=== PATIENT | female | born 1955 | race Caucasian/White ===

== ENCOUNTER 2017-05-04 17:01 | Inpatient (IN) ==
[2017-05-04] MEDS ORDERED: SALINE FLUSH 10ml SYRINGE IVF PRN (17:38)
--- NOTE | 2017-05-04 18:07 | Emergency Department Report ---
Neuro HPI - General Chief Complaint: Weakness Stated Complaint: poss blod clot,poss stroke ([facility]) Time Seen by Provider: 05/04/17 17:37 Source: patient Mode of arrival: ambulatory Limitations: no limitations - History of Present Illness HPI Narrative: 61yo woman presents to the ER for left sided facial droop. Pts left forehead was tingling and TTP last night. This AM, pt awoke with some pain behind her left ear and along her left jaw. As she at breakfast, she felt that her sense of taste was off and she started to have some drooling on her left side. Pt initially thought that her sx were due to Nunez's palsy, but sx are not c/w that dx now. Onset (ago): hour(s) (10) Time: 0800 Time Estimated: No Location: left face History of same: No Severity: mild Quality: weak Relieving factors: none Exacerbating factors: none Context: gradual onset On Anticoagulants: Yes (ASA) Associated symptoms: denies other symptoms Treatments Prior to Arrival: none - Related Data Home Medications: Home Medications Medication Instructions Recorded Confirmed Ascorbic Acid [Vitamin C] 1,000 mg PO DAILY #0 02/14/14 05/04/17 Cholecalciferol (Vitamin D3) 3,000 tab PO DAILY #0 05/21/14 05/04/17 [Vitamin D3] Glucosamine/Chondro Lobo A/C/Mn 1 tab PO DAILY #0 05/21/14 05/04/17 [Glucosamine-Chondroitin Cap] Magnesium Amino Acid Chelate 100 mg PO DAILY #0 05/21/14 05/04/17 [Magnesium] Pindolol 2.5 mg PO BID #0 tab 07/02/15 05/04/17 Acetaminophen [Acetaminophen Extra 1,000 mg PO Q6H PRN 05/04/17 05/04/17 Strength] Lutein 20 mg PO DAILY 05/04/17 05/04/17 Wyola-3/Dha/Epa/Fish Oil [Fish Oil 2,000 mg PO DAILY 05/04/17 05/04/17 1,000 mg Softgel] Previous Rx's Medication Instructions Recorded Dabigatran [Pradaxa] 1 cap PO BID #60 cap 05/05/17 Mineral Oil/Petrolatum,White 3.5 gm OP HS #0.25 inch 05/05/17 [Refresh Lacri-Lube Ointment] PredniSONE [Deltasone] 60 mg PO WB #18 tab 05/05/17 Valacyclovir [Valtrex] 1,000 mg PO Q8HR #20 tab 05/05/17 Allergies/Adverse Reactions: Allergies Allergy/AdvReac Type Severity Reaction Status Date / Time No Known Allergies Allergy Verified 05/04/17 17:22 Review of Systems All systems: reviewed and negative except as stated Neurological: Reports: as per HPI, weakness, numbness, paresthesias. Denies: headache, confusion, abnormal gait, vertigo [facility] Medical History CVA (cerebral vascular accident) (Ruled-out Medical) L-Facial involvement Paroxysmal atrial fibrillation (Resolved Medical) History of Left-sided Nunez's palsy (Acute Medical) Medical History Updates: CAD. Osteoarthritis. HL. HTN. Osteoporosis Physical Exam - Limitations Limitations: no limitations - General General appearance: alert, in no apparent distress - Normal Exams: Head:: Normocephalic without trauma Eyes:: Pupils are PERRLA w/ EOMI, No scleral icterus, irritation, or foreign bodies noted ENMT:: No facial trauma, nasal exudates, pharyngeal erythema, or exudates are noted Neck:: Full range of motion, without adenopathy Lymphatic:: No lymphadenopathy Musculoskeletal:: No tenderness, or deformity noted Integumentary:: No rashes, hives, or bruising noted Neurological:: Patient is alert, and oriented Psychiatric:: Patient exhibits, appropriate attention - Neurological Exam Neurological exam: Present: alert, oriented X3, normal gait. Absent: CN II-XII intact (Weakness with puffing-cheeks and slight left-love tongue deviation), motor sensory deficit - Expanded Neurological Exam Patient oriented to: Present: person, place, time Speech: Present: fluid speech Cranial nerves: Normal: EOM function (II, III, IV, ), facial sensation (V), spinal accessory function (XI), Abnormal Left: facial palsy (VII), tongue deviation (XII) Cerebellar function: Normal: finger to nose, heel to segura Cerebellar function: normal gait Motor strength - LUE: 5/5 Motor strength - RUE: 5/5 Motor strength - LLE: 5/5 Motor strength - RLE: 5/5 Upper motor neuron exam: Absent bilaterally: dennis neglect, pronator drift, sensory extinction DTR: 2+: biceps (L), biceps (R), patellar (L), patellar (R) Coma scale eye opening: spontaneous Coma scale motor response: obeys commands Coma scale verbal response: oriented Coma scale total: 15 Course - Consultations Consultation #1: Dr. Moncada: Will admit for CVA work up. Time: 18:20 Vital Signs Temperature 98.1 F 05/04/17 17:07 Pulse Rate 72 05/04/17 17:07 Respiratory Rate 20 05/04/17 17:07 Blood Pressure 142/85 H 05/04/17 17:07 Pulse Oximetry 100 05/04/17 17:07 Temperature 97.5 F 05/05/17 15:00 Pulse Rate 73 05/05/17 15:00 Respiratory Rate 12 05/05/17 15:00 Blood Pressure 120/66 05/05/17 15:00 Pulse Oximetry 100 05/05/17 15:00 Neuro Symptoms/Deficit - MDM Narrative Medical decision making narrative: Pt with hx c/w Nunez's palsey or Troncoso-Payton syndrome, but without PE findings to corroborate. Pts PE today is c/w a 'mild' CVA. 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 After initial evaluation, pt discussed with hospitalist for admission/CVA workup. Pt voiced understanding of dx, prognosis, tx, and f/u need. - Differential Diagnosis Likely: convulsions, subarachnoid hemorrhage, peripheral neuropathy, cerebrovascular accident, transient cerebral ischemia - Medical Records Attestation: I reviewed the patient's medical records. - Lab Data Attestation: I reviewed the patient's lab results. Result diagrams: 05/04/17 17:21 05/05/17 05:18 Lab Results 05/04/17 05/04/17 05/04/17 Range/Units 17:21 17:21 17:21 WBC 4.9 (4.5-11.0) T/MM3 RBC 4.27 (4.00-5.20) M/MM3 Hgb 13.4 (12-16) GM/DL Hct 41.0 (36-46) % MCV 96.0 (80-100) UM3 MCH 31.4 (26-34) UUG MCHC 32.7 (31-37) GM/DL RDW Std Deviation 45.7 (36.9-50.2) FL Plt Count 253 (130-400) T/MM3 MPV 10.3 (9.4-12.4) UM3 Immature Gran % (Auto) 0.0 (0.0-0.5) % Neut % (Auto) 33.3 (33-66) % Lymph % (Auto) 51.9 H (23-45) % Wise % (Auto) 11.2 H (0-9.0) % Eos % (Auto) 3.0 (0-4) % Baso % (Auto) 0.6 (0-2) % Neut # (Auto) 1.6 L (1.8-7.7) T/MM3 Lymph # (Auto) 2.6 (1-4.8) T/MM3 Wise # (Auto) 0.6 (0-0.8) T/MM3 Eos # (Auto) 0.2 (0-0.5) T/MM3 Baso # (Auto) 0.0 (0-0.2) T/MM3 Abs Immat Gran (auto) 0.00 (0.00-0.03) T/MM3 Turbidity < 20 (0-20) Sodium 143 (134-144) MEQ/L Potassium 3.9 (3.6-5) MEQ/L Chloride 105 (98-107) MEQ/L Carbon Dioxide 27 (22-30) MEQ/L Anion Gap 11 (5-15) MEQ/L BUN 14.0 (7-17) MG/DL Creatinine 0.8 (0.7-1.2) MG/DL GFR Calculation 72 BUN/Creatinine Ratio 18 (6-26) RATIO Glucose 91 (65-110) MG/DL Hemoglobin A1c 5.1 L (6.1-7.9) % Calculated Osmolality 276 (261-280) MOSM/KG Calcium 9.6 (8.4-10.2) MG/DL Total Bilirubin 0.50 (0.20-1.30) MG/DL Icterus Index < 2 (0-7) AST 26 (14-36) U/L ALT 41 (9-52) U/L Alkaline Phosphatase 84 (38-126) U/L Total Protein 7.3 (6.3-8.2) G/DL Albumin 4.3 (3.5-5.0) G/DL Globulin 3.0 (2.4-3.6) G/DL Albumin/Globulin Ratio 1.4 (1.1-2.2) RATIO Specimen Hemolysis < 15 (0-25) Ur Collection Type Urine Color (YELLOW) Urine Clarity Urine pH (5.0-8.0) Ur Specific [employer] (1.015-1.025) Urine Protein (NEGATIVE) Urine Glucose (UA) (NEGATIVE) Urine Ketones (NEGATIVE) Urine Occult Blood (NEGATIVE) Urine Nitrate (NEGATIVE) Urine Bilirubin (NEGATIVE) Urine Urobilinogen (NORMAL) EU/DL Ur Leukocyte Esterase (NEGATIVE) Urinalysis Comment 05/04/17 Range/Units 18:10 WBC (4.5-11.0) T/MM3 RBC (4.00-5.20) M/MM3 Hgb (12-16) GM/DL Hct (36-46) % MCV (80-100) UM3 MCH (26-34) UUG MCHC (31-37) GM/DL RDW Std Deviation (36.9-50.2) FL Plt Count (130-400) T/MM3 MPV (9.4-12.4) UM3 Immature Gran % (Auto) (0.0-0.5) % Neut % (Auto) (33-66) % Lymph % (Auto) (23-45) % Wise % (Auto) (0-9.0) % Eos % (Auto) (0-4) % Baso % (Auto) (0-2) % Neut # (Auto) (1.8-7.7) T/MM3 Lymph # (Auto) (1-4.8) T/MM3 Wise # (Auto) (0-0.8) T/MM3 Eos # (Auto) (0-0.5) T/MM3 Baso # (Auto) (0-0.2) T/MM3 Abs Immat Gran (auto) (0.00-0.03) T/MM3 Turbidity (0-20) Sodium (134-144) MEQ/L Potassium (3.6-5) MEQ/L Chloride (98-107) MEQ/L Carbon Dioxide (22-30) MEQ/L Anion Gap (5-15) MEQ/L BUN (7-17) MG/DL Creatinine (0.7-1.2) MG/DL GFR Calculation BUN/Creatinine Ratio (6-26) RATIO Glucose (65-110) MG/DL Hemoglobin A1c (6.1-7.9) % Calculated Osmolality (261-280) MOSM/KG Calcium (8.4-10.2) MG/DL Total Bilirubin (0.20-1.30) MG/DL Icterus Index (0-7) AST (14-36) U/L ALT (9-52) U/L Alkaline Phosphatase (38-126) U/L Total Protein (6.3-8.2) G/DL Albumin (3.5-5.0) G/DL Globulin (2.4-3.6) G/DL Albumin/Globulin Ratio (1.1-2.2) RATIO Specimen Hemolysis (0-25) Ur Collection Type Urine, clean catch Urine Color Yellow (YELLOW) Urine Clarity Clear Urine pH 5.5 (5.0-8.0) Ur Specific [employer] <=1.005 L (1.015-1.025) Urine Protein Negative (NEGATIVE) Urine Glucose (UA) Negative (NEGATIVE) Urine Ketones Negative (NEGATIVE) Urine Occult Blood Negative (NEGATIVE) Urine Nitrate Negative (NEGATIVE) Urine Bilirubin Negative (NEGATIVE) Urine Urobilinogen 0.2 (NORMAL) EU/DL Ur Leukocyte Esterase Negative (NEGATIVE) Urinalysis Comment Microscopic not ind. - Radiology Data Attestation: I reviewed the patient's radiology results. CT Head: FINDINGS: Brain: There is no acute intracranial hemorrhage or mass effect. Mild diffuse volume loss is within the range of normal for patient age. There are small vessel ischemic changes within the periventricular and subcortical white matter, but the normal rizvi/white matter delineation is maintained. Ventricles: The ventricles are normal in size and configuration for age. Bones/joints: The calvarium is intact. Soft tissues: Unremarkable. Sinuses: The paranasal sinues are normally aerated. Mastoid air cells: Unremarkable as visualized. No mastoid effusion. IMPRESSION: No acute intracranial hemorrhage or edema. Thank you for allowing us to participate in the care of your patient. Disposition Clinical Impression: CVA (cerebral vascular accident) Qualifiers: CVA mechanism: unspecified Qualified Code(s): I63.9 - Cerebral infarction, unspecified Disposition: 02 To [facility] Condition: Stable Time of Disposition: 18:22 - Seen By: physician
--- OUTSIDE RECORDS SUMMARY | 2017-05-04 18:23 | External Medical Summary | Referral Summary ---
:1955 Author Organization [facility] Address [address] [place] [address] TATIANA Roger [phone] Care Team Providers Name Role Phone No PCP, States Primary Care Physician Encounter [facility] Date(s): 05/12/15 - 05/12/15 [facility] [address] [place] [address] [place] [phone] [place] Discharge Disposition: 01-Home or Self Care Attending Physician: Cristhian Stephen JR, MD Admitting Physician: Cristhian Stephen JR, MD Vital Signs Most recent to oldest [Reference Range]: 1 Temperature Tympanic [36.6-38.1 degC] 36.8 degC (05/12/15 1:43 PM) Peripheral Pulse Rate [60-100 bpm] 64 bpm (05/12/15 1:43 PM) Blood Pressure [90-140/60-90 mmHg] 102/72 mmHg (05/12/15 1:43 PM) Problem List Condition Effective Dates Status Health Status Informant Acne(Confirmed) Active Arthritis(Confirmed) Active Enlarged ovary(Confirmed) 2005 Active Malignant tumor of urinary bladder Active (disorder)(Confirmed) Menopausal symptom(Confirmed) 2007 Active Migraine headache(Confirmed) Active PAF (paroxysmal atrial Active fibrillation)(Confirmed) Allergies, Adverse Reactions, Alerts No Known Medication Allergies Medications cephalexin 500 mg oral tablet 500 mg 1 tabs, Oral, QID, # 12 tabs, 0 Refill(s), Pharmacy: [id number], 1 tabs Oral QID Start Date: 05/11/15 Stop Date: 05/15/15 Status: Orderedcephalexin 500 mg oral tablet 500 mg 1 tabs, Oral, QID, # 20 tabs, 2 Refill(s), Pharmacy: [id number], 1 tabs Oral QID Start Date: 12/05/14 Status: Ordereddiltiazem 0 Refill(s) Start Date: 12/25/14 Status: OrderedFish Oil See Instructions, Oral, 0 Refill(s) Start Date: 11/20/13 Status: OrderedGlucosamine Chondroitin MSM Complex tabs, Oral, TID, 0 Refill(s) Start Date: 06/03/14 Status: Orderedlutein 10 mg oral capsule 1 caps, Oral, Daily, 0 Refill(s) Start Date: 11/20/13 Status: Orderedmagnesium oxide Oral, 0 Refill(s) Start Date: 06/03/14 Status: Orderedphenazopyridine 100 mg oral tablet 1 tabs, Oral, TIDPC, 0 Refill(s) Start Date: 11/20/13 Status: OrderedVitamin C 0 Refill(s) Start Date: 01/17/14 Status: OrderedVitamin D with Minerals oral tablet tabs, Oral, Daily, 0 Refill(s) Start Date: 01/17/14 Status: OrderedVitamin D3 0 Refill(s) Start Date: 06/03/14 Status: Ordered Results No data available for this section Immunizations Vaccine Date Refusal Reason BCG 05/12/15 BCG1 11/04/14 BCG2 07/08/14 BCG 04/08/14 BCG3 01/07/14 tetanus/diphth/pertuss (Tdap) adult/adol 10/18/10 1Result Comment: Vial contains 1--8x10 [place] [employer] Units of Bacillus of [place] and Emilie per [id number] Comment: Lot [id number] Exp - [id number] Comment: BCG mixed per protocol and given intravesicular by Dr. Stephen using sterile technique. Procedures Procedure Date Related Diagnosis Body Site Cystoscopy using panendoscope 12/08/14 Pelvic examination under anesthesia 12/08/14 Colonoscopy1 02/14/14 Cystoscopy and bladder biopsy 09/06/13 Oophorectomy 2006 Breast biopsy and related procedures 1Diverticula, repeat in 10 years Social History Social History Type Response Smoking Status Never smoker Assessment and Plan Extracted from: Title: 18 Month BCG Instillation Author: Janine Bartholomew RN Date: 05/12/15 Consent signed by pt for BCG instillation to be done by Dr. Stephen. Loyd inserted by Dr. Stephen, BCG mixed by RN and then instilled by Dr. Stephen using sterile technique. Pt tolerated procedure well . Instructed on going home and doing turn schedule as previously. Pt given turn schedule and instructions for home. Pt scheduled next cystoscopy with Pete Romero RN. BCG Lot [id number]. Exp - 09/24/2015. Future Scheduled TestsReferralReturn to Clinic 10/10/14 10:29 AM Referrals to Other Providers Referred by: Sandra Moise
--- OUTSIDE RECORDS SUMMARY | 2017-05-04 18:23 | External Medical Summary | Referral Summary ---
:1955 Author Organization [facility] Address [address] [place] [address] [place] Roger [phone] Care Team Providers Name Role Phone No PCP, States Primary Care Physician Encounter [facility] [id number] Date(s): 12/08/14 - 12/08/14 [facility] [address] [place] [address] [place] [phone] [place] Discharge Disposition: 01-Home or Self Care Attending Physician: Cristhian Stephen JR, MD Admitting Physician: Cristhian Stephen JR, MD Vital Signs No data available for this section Problem List Condition Effective Dates Status Health Status Informant Acne(Confirmed) Active Arthritis(Confirmed) Active Enlarged ovary(Confirmed) 2006 Active Malignant tumor of urinary bladder Active (disorder)(Confirmed) Menopausal symptom(Confirmed) 2007 Active Migraine headache(Confirmed) Active PAF (paroxysmal atrial Active fibrillation)(Confirmed) Allergies, Adverse Reactions, Alerts No Known Medication Allergies Medications cephalexin 500 mg oral tablet 500 mg 1 tabs, Oral, QID, # 20 tabs, 2 Refill(s), [facility], 1 tabs Oral QID Start Date: 12/05/14 [...] adult/adol 10/18/10 1Result Comment: Vial contains 1--8x10 [place] [employer] Units of Bacillus of [place] and Emilie per [id number] Comment: Lot [id number] Exp - 20143Result Comment: BCG mixed per protocol and given intravesicular by Dr. Stephen using sterile technique. Procedures Procedure Date Related Diagnosis Body Site Cystoscopy using panendoscope 12/08/14 Cystourethroscopy (separate procedure) 12/08/14 Pelvic examination under anesthesia 12/08/14 Colonoscopy1 02/14/14 Cystoscopy and bladder biopsy 09/06/13 Oophorectomy 2006 Breast biopsy and related procedures 1Diverticula, repeat in 10 years Social History Social History Type Response Smoking Status Never smoker Assessment and Plan Future Scheduled TestsReferralReturn to Clinic 10/10/14 10:29 AM Referrals to Other Providers Referred by: Sandra Moise
--- OUTSIDE RECORDS SUMMARY | 2017-05-04 18:23 | External Medical Summary | Summary of Care ---
:1955 Author Name Donaldo Cool M.D. Address [address] [place] [address] [place] [address] Care Team Providers Name Role Phone Donaldo Cool M.D. Unavailable Unavailable Gail Faulkner Unavailable Unavailable Unavailable Unavailable Unavailable Functional Status Functional Status Health Issues Name Dates Details Functional status health issues are not documented Status: Cognitive Status Health Issues Name Dates Details Cognitive status health issues are not documented Status: Problems Name Dates Details History of malignant neoplasm of bladder (V10.51, Z85.51) Status: Resolved Bladder cancer screening (V76.3, Z12.6) Status: Active Nocturia (788.43, R35.1) Status: Active Medications Name Dates Details Aspirin 325 MG Oral Tablet TAKE 1 TABLET DAILY. Refills: 0 Cho M.D., Donaldo Start 19-Apr-2016 Active Pindolol 5 MG Oral Tablet TAKE TABLET Refills: 0 Cho M.D., Donaldo Start 19-Apr-2016 Active Allergies and Adverse Reactions Name Dates Details No Known Drug Allergies (Allergy) Status: Active Past Medical History Name Dates Details H/O mammogram (V15.89, Z92.89) Status: Resolved History of depression (V11.8, Z86.59) Status: Resolved History of Hot flashes (782.62, R23.2) Status: Resolved History of malignant neoplasm of bladder (V10.51, Z85.51) Status: Resolved History of Postmenopausal bleeding (627.1, N95.0) Status: Resolved History of Vaginal Pap smear (V76.47, Z12.72) Status: Resolved Procedures Procedure Dates Details History of Colonoscopy History of Anesthesia For Transurethral Resection Of Bladder Tumor(S) History of Biopsy Breast Open History of Oophorectomy - Unilateral (Removal Of One Ovary) Procedures not documented Immunization Name Dates Details Immunizations not documented Family History Grandmother Name Dates Details Family history of lymphoma (V16.7, Z80.2) Status: Active aunt Name Dates Details Family history of Malignant tumor of ovary (183.0, C56.9) Status: Active Brother Name Dates Details Family history of skin cancer (V16.8, Z80.8) Status: Active Social History Name Dates Details - Status: Smoking Status Name Dates Details Never smoker Vital Signs Date Test Result Details 20-Apr-2016 08:50 BP Systolic 110 mm[Hg] Status: Comments: Location: ; Position: BP Diastolic 72 mm[Hg] Status: Comments: Location: ; Position: Heart Rate 70 /min Status: Comments: Location: ; Height 65.5 in Status: Weight 145 lb Status: Body Mass Index Calculated 23.76 kg/m2 Status: Body Surface Area Calculated 1.74 m2 Status: 19-Apr-2016 08:32 Height 65.5 in Status: Weight 145.6 lb Status: Body Mass Index Calculated 23.86 kg/m2 Status: Body Surface Area Calculated 1.74 m2 Status: Results Date Description Value Details Results not documented Plan of Care Name Dates Details Planned Observations Planned Goals not documented Planned Encounters Appointment; Provider: Donaldo Cool M.D. On 20-May-2016 11:00 Instructions Name Dates Details Instructions not documented Encounters Appointment; Donaldo Cool M.D. On 20-Apr-2016 Encounter Diagnosis: Problem not documented 08:45
--- OUTSIDE RECORDS SUMMARY | 2017-05-04 18:23 | External Medical Summary | Referral Summary ---
:1955 Author Care Team Providers Name Role Phone Nicole Donohue Primary Care Physician Encounter [facility] [id number] Date(s): 10/10/14 - 10/10/14 [facility] [address] [place], [place] [address] Discharge Diagnosis: Atrial fibrillation Discharge Disposition: Home or Self Care Attending Physician: Sandra Moise Admitting Physician: Sandra Moise Referring Physician: Nicole Donohue MD Vital Signs Most recent to oldest [Reference Range]: 1 Apical Heart Rate [60-100 bpm] 61 bpm (10/10/14 10:00 AM) Blood Pressure [90-140/60-90 mmHg] 98/68 mmHg (10/10/14 10:00 AM) Problem List Condition Effective Dates Status Health Status Informant Acne(Confirmed) Active Arthritis(Confirmed) Active Enlarged ovary(Confirmed) 2005 Active Irregular heart beat(Confirmed) Active Malignant tumor of urinary bladder Active (disorder)(Confirmed) Menopausal symptom(Confirmed) 2007 Active Migraine headache(Confirmed) Active Allergies, Adverse Reactions, Alerts No Known Medication Allergies Medications cephalexin 500 mg oral tablet 1 tabs, Oral, QID, Day of procedure and 2 days following., # 12 tabs, 2 Refill(s ), Pharmacy: [facility], 1 tabs Oral QID,Instr:Day of procedure and 2 days following. Special Instructions: Day of procedure and 2 days following. Start Date: 04/08/14 Status: Ordereddigoxin 250 mcg (0.25 mg) oral tablet 1 tabs, Oral, Daily, # 30 tabs, 11 Refill(s), Pharmacy: [facility], 1 tabs Oral Daily Start Date: 10/10/14 Status: Ordereddiltiazem 180 mg/24 hours oral tablet, extended release 1 tabs, Oral, Daily, # 90 tabs, 4 Refill(s), Pharmacy: [facility], 1 tabs Oral Daily Start Date: 09/12/14 Status: OrderedFish Oil See Instructions, Oral, 0 Refill(s) Special Instructions: Oral Start Date: 11/20/13 Status: OrderedGlucosamine Chondroitin MSM [...] this section Immunizations Vaccine Date Refusal Reason BCG1 07/08/14 BCG 04/08/14 BCG2 01/07/14 tetanus/diphth/pertuss (Tdap) adult/adol 10/18/10 1Result Comment: Lot [id number] Exp - 10/31/[id number] Comment: BCG mixed per protocol and given intravesicular by Dr. Stephen using sterile technique. Procedures Procedure Date Related Diagnosis Body Site Colonoscopy1 02/14/14 Cystoscopy and bladder biopsy 09/06/13 Oophorectomy 2006 Breast biopsy and related procedures 1Diverticula, repeat in 10 years Social History Social History Type Response Smoking Status Never smoker Assessment and Plan Future Scheduled TestsReferralReturn to Clinic 10/10/14 10:29 AM Referrals to Other Providers Referred by: Sandra Moise
--- OUTSIDE RECORDS SUMMARY | 2017-05-04 18:23 | External Medical Summary | Continuity of Care Document ---
:1955 Author Organization [facility] Address [address] [place], [place] [id number] Phone Care Team Providers Name Role Phone Gail Faulkner MD Unavailable Unavailable Allergies, Adverse Reactions, Alerts Substance Reaction Severity Status No Known Drug Allergies Unknown Active Medications Medication Instructions Dosage Effective Dates Status Comments (start - stop) misoprostol 200 mcg take 1 tablet by oral - Active tablet route or vaginally at bedtime the day before endometrial biopsy and again once the morning of. Percocet 5 mg-325 mg take 1 tablet by oral - Active tablet route once 30 minutes prior to biopsy. aspirin 325 mg tablet take 1 tablet by oral 325 MG - Active route every day pindolol 5 mg tablet take 2 tablet by oral 10 MG - Active route every day FISH OIL (unknown - Active strength) VITAMIN D3 (unknown - Active strength) VITAMIN C (unknown - Active strength) COD LIVER OIL - Active (unknown strength) CALCIUM (unknown - Active strength) Problems Condition Effective Dates (start - stop) Clinical Status Postmenopausal Bleeding - Postmenopausal Bleeding Postmenopausal Bleeding Arthritis Unspecified Active Mitral Valve Prolapse Active Uterine Fibroids Active Procedures Procedure Date Unknown Results Test Name Date and Time Measure Units Reference Range Abnormal Flag Comments Unknown Advance Directives Directive Yes / No Effective Date File Name Unknown Encounters Encounter Practice Location Reason(s) Diagnoses Date Provider Care Team Description For Visit Members Katalina Rosa Postmenopausal Apr- Vicky Referring In [facility]om[facility]eding[facility]men[facility] [address] Pat[address]. Provider: Murtaza TABOR, paulina Bleeding 6 [address], [address], [facility], 120, Center [id number], Gonz[place]lez Rosa [facility], [address], tel:[phone] Moe [id number] , . [place], [address]. tel: tel: [phone] Associates Moe Postmenopausal Oct-2 Perry Referring In Womens Bleeding 7-201 Paty. Provider: Health SH[facility], 6 700 [facility], [address], [facility], 120, Center [id number], [place], [facility], [address], tel: [phone] [facility] [id number] , . [place], [address]. tel: tel: [phone] Katalina Rosa Oct-2 Perry In Womens 5-201 Paty. Health SH[facility], 6 700 [facility] [address], [address], [facility], 120, [id number], [facility], tel: [phone] , . tel: [phone] Family History Family Member Diagnosis Age At Onset Maternal Grandmother Osteoporosis Mother Cardiovascular Disease Father Cardiovascular Disease Maternal Grandmother Cardiovascular Disease Paternal Grandfather Cardiovascular Disease Maternal Grandfather Stroke Mother Osteoporosis Mother Stroke Immunizations Vaccine Date Status Comments Unknown Payers Payer name Insurance type Covered democrat ID Authorization(s) [facility] [id number] Social History Type Description Quantity Date Captured Alcohol Use Details No Caffeine Use Details No Tobacco Use Status Unknown Smoking Status Unknown Vital Signs Date / Height Weight BMI Pulse Blood Temperature Respiratory Body Head BMI Time: Rate Pressure Rate Surface Circumference percentile Area Unknown Chief Complaint And Reason For Visit Unknown Chief Complaint And Reason For Visit Reason For Referral Reason For Referral Unknown Plan Of Care Date Type Action Status Goal Lifestyle education regarding diet completed Date Type Problem Goal Intervention Status Start Date Unknown. History Of Present Illness Encounter Date Complaint History Of Present Illness This patient has no known history of present illness Functional Status Encounter Date Functional Assessment Cognitive Assessment Unknown Medications Administered Medication Instructions Dosage Effective Dates (start - stop) Status Comments Drug Treatment Unknown Instructions Date Instruction Additional Information Giving encouragement to exercise Related to Body mass index less than 20 Lifestyle education regarding diet Related to Body mass index less than 20
--- OUTSIDE RECORDS SUMMARY | 2017-05-04 18:23 | External Medical Summary | Referral Summary ---
:1955 Author Organization [facility] Address [address] [place] [address] TATIANA Roger [address] Care Team Providers Name Role Phone No PCP, States Primary Care Physician Encounter [facility] [id number] Date(s): 11/04/14 - 11/04/14 [facility] [address] [place] [address] TATIANA Roger [phone] [place] Discharge Diagnosis: MALIGNANT NEOPLASM OF BLADDER, PART UNSPECIFIED Discharge Disposition: 01-Home or Self Care Attending Physician: Cristhian Stephen JR, MD Admitting Physician: Cristhian Stephen JR, MD Referring Physician: Nicole Donohue MD Vital Signs Most recent to oldest [Reference Range]: 1 Temperature Oral [35.8-37.3 degC] 36.5 degC (11/04/14 1:25 PM) Peripheral Pulse Rate [60-100 bpm] 64 bpm (11/04/14 1:25 PM) Blood Pressure [90-140/60-90 mmHg] 116/80 mmHg (11/04/14 1:25 PM) Problem List Condition Effective Dates Status Health Status Informant Acne(Confirmed) Active Arthritis(Confirmed) Active Enlarged ovary(Confirmed) 2006 Active Malignant tumor of urinary bladder Active (disorder)(Confirmed) Menopausal symptom(Confirmed) 2007 Active Migraine headache(Confirmed) Active PAF (paroxysmal atrial Active fibrillation)(Confirmed) Allergies, Adverse Reactions, Alerts No Known Medication Allergies Medications cephalexin 500 mg oral tablet 500 mg 1 tabs, Oral, QID, # 20 tabs, 2 Refill(s), Pharmacy: [id number], 1 tabs Oral QID Start Date: 12/05/14 [...] adult/adol 10/18/10 1Result Comment: Vial contains 1--8x10 [place] Forming Units of Bacillus of Calmette and Emilie per [id number] Comment: Lot [id number] Exp - 20143Result Comment: BCG mixed per [...] smoker Assessment and Plan Extracted from: Title: Ambulatory Patient Education Author: Cristhian Stephen JR, MD Date: Follow Up With: Where: When: Nicole Donohue [address] [place] [address] Drive; [place] [address] (348) Business (1) Within 3 to 5 days Comments: Follow Up With: Where: When: Cristhian Stephen [address] [place] [address] Drive; [place] [address] Business (1) In 2 weeks 11/18/2014 Comments: Extracted from: Title: Procedure Note Author: Cristhian Stephen JR, MD Date: 11/04/14 Assessment/Plan MALIGNANT NEOPLASM OF BLADDER, PART UNSPECIFIED Periodic follow up cystoscopy every three months or sooner if patient notices gross hematuria. Ordered: Extracted from: Title: 1 year BCG Author: Janine Bartholomew RN Date: 11/04/14 Consent signed by pt for BCG instillation to be done by Dr. Stephen. Loyd inserted by Dr. Stephen, BCG mixed by RN and then instilled by Dr. Stephen using sterile technique. Pt tolerated procedure well . Instructed on going home and doing turn schedule as previously. Pt has turn schedule and instructions at home. Pt scheduled next cystoscopy on November. BCG Lot [id number]. Exp - 09/24/2015. Future Scheduled TestsReferralReturn to Clinic 10/10/14 10:29 AM Referrals to Other Providers Referred by: Sandra Moise
--- OUTSIDE RECORDS SUMMARY | 2017-05-04 18:23 | External Medical Summary | Continuity of Care Document ---
:1955 Author Organization [facility] Address [address] [place], [place] [phone] Phone Care Team Providers Name Role Phone [...] Care Team Description For Visit Members Katalina Lyn0 Vicky In [facility] 4 [facility]. [employer] [place], 6 700 [address], [address] [place], [address], [id number], [place], tel:[phone] , [place]. tel: [phone] Katalina Rosa Postmenopausal Nov-0 Perry Referring In Womens BleedingPostmenopau 3-201 Paty. Provider: Murtaza TABOR, paulina Bleeding 6 700 [facility], [address], [address], [facility], 120, Center [id number], [place], [facility], [address], tel:[phone] [place], [address] , [place], [address]. tel: tel:[phone] Katalina Rosa Postmenopausal Oct-2 Perry Referring In Womens Bleeding 7-201 Paty. Provider: Murtaza TABOR, 6 700 [facility], [address], [address], [facility], 120, Center [id number], [place], [facility], [address], tel:[phone] [facility] [id number] , [place], [address]. tel: tel:[phone] Katalina Rosa Oct-2 Perry In Womens 5-[address] Paty. Murtaza TABOR, 6 700 [facility] [address], [address], [facility], 120, [id number], [facility], tel:[phone] , [place]. tel: [phone] Family History Family Member Diagnosis Age At Onset Maternal Grandmother Osteoporosis Mother Cardiovascular Disease Father Cardiovascular Disease Maternal Grandmother Cardiovascular Disease Paternal Grandfather Cardiovascular Disease Maternal Grandfather Stroke Mother Osteoporosis Mother Stroke Immunizations Vaccine Date Status Comments Unknown Payers Payer name Insurance type Covered democrat ID Authorization(s) [facility] [id number] Social History Type Description Quantity Date Captured Unknown Vital Signs Date / Height Weight [...]
--- OUTSIDE RECORDS SUMMARY | 2017-05-04 18:23 | External Medical Summary | Summary of Care ---
:1955 Author Name Donaldo Cool M.D. Address [address] [place] [address] [place] [address] Care Team Providers Name Role Phone Donaldo [...] m2 Status: Results Date Description Value Details 20-Apr-2016 13:18 CYTOLOGY - URINE 4444 CYTOLOGY Specimen referred to [facility]. Report to follow. Plan of Care Name Dates Details Planned Observations Planned Goals not documented Planned Encounters Appointment; Provider: Donaldo Cool M.D. On 20-May-2016 11:00 Instructions Name Dates Details Instructions not documented Encounters Appointment; Donaldo Cool M.D. On 20-Apr-2016 Encounter Diagnosis: Problem not documented 08:45
--- OUTSIDE RECORDS SUMMARY | 2017-05-04 18:24 | External Medical Summary | Referral Summary ---
:1955 Author Organization [facility] Address [address] [place] [address] TATIANA Roger [address] Care Team Providers Name Role Phone No PCP, States Primary Care Physician Encounter [facility] Date(s): 07/17/15 - 07/17/15 [facility] [address] [place] [address] TATIANA [place] [phone] [place] Discharge Diagnosis: History of bladder cancer Discharge Diagnosis: Osteoarthritis Discharge Diagnosis: History of bladder cancer Discharge Disposition: 01-Home or Self Care Attending Physician: Cristhian Stephen JR, MD Admitting Physician: Cristhian Stephen JR, MD Vital Signs Most recent to oldest [Reference Range]: 1 Peripheral Pulse Rate [60-100 bpm] 66 bpm (07/17/15 2:10 PM) Blood Pressure [90-140/60-90 mmHg] 122/62 mmHg (07/17/15 2:10 PM) Problem List Condition Effective Dates Status Health Status Informant Acne(Confirmed) Active Arthritis(Confirmed) Active Enlarged ovary(Confirmed) 2005 Active Malignant tumor of urinary bladder Active (disorder)(Confirmed) Menopausal symptom(Confirmed) 2006 Active Migraine headache(Confirmed) Active PAF (paroxysmal atrial Active fibrillation)(Confirmed) Allergies, Adverse Reactions, Alerts No Known Medication Allergies Medications Fish Oil See Instructions, Oral, 0 Refill(s) Start Date: 11/20/13 Status: OrderedGlucosamine Chondroitin MSM Complex tabs, Oral, TID, 0 Refill(s) Start Date: 06/03/14 Status: Orderedlutein 10 mg oral capsule 1 caps, Oral, Daily, 0 Refill(s) Start Date: 11/20/13 Status: Orderedmagnesium oxide Oral, 0 Refill(s) Start Date: 06/03/14 Status: Orderedpindolol Oral, Daily, 0 Refill(s) Start Date: 07/17/15 Status: OrderedVitamin C 0 Refill(s) Start Date: [...] adult/adol 10/18/10 1Result Comment: Vial contains 1--8x10 [place] Forming Units of Bacillus of [place]met[place] and Emilie per [id number] Comment: Lot [id number] Exp - 20143Result Comment: BCG mixed per protocol and given intravesicular by Dr. Stephen using sterile technique. Procedures Procedure Date Related Diagnosis Body Site Cystoscopy using panendoscope 07/03/15 Cystoscopy using panendoscope 12/08/14 Pelvic examination under anesthesia 12/08/14 Colonoscopy1 02/14/14 Cystoscopy and bladder biopsy 09/06/13 Oophorectomy 2006 Breast biopsy and related procedures 1Diverticula, repeat in 10 years Social History Social History Type Response Smoking Status Never smoker Assessment and Plan Extracted from: Title: Ambulatory Patient Education Author: Cristhian Stephen JR, MD Date: Follow Up With: Where: When: Pt States No PCP [address] [place] [address] Business (1) Within 3 to 5 days Comments: Follow Up With: Where: When: Cristhian Stephen [address] [place] [address] Drive; [place] [address] Business (1) In 6 months 01/15/2016 Comments: Extracted from: Title: Office Visit Note Author: Cristhian Stephen JR, MD Date: 07/17/15 Assessment/Plan 1.History of bladder cancer, History of bladder cancer There was no recurrent bladder cancer seen on the recent cystoscopy To see me in my office in 6 months or sooner if needed especially if she notices blood in her urine or pain in her bladder Ordered: Office Visit Level 2 [facility] [address] 2.Osteoarthritis Continue glucosamine and chondroitin and physical Future Scheduled TestsReferralReturn to Clinic 10/10/14 10:29 AM Referrals to Other Providers Referred by: Sandra Moise
--- OUTSIDE RECORDS SUMMARY | 2017-05-04 18:24 | External Medical Summary | Summary of Care ---
:1955 Author Name Donaldo Cool M.D. Address [address] [place] [address] [place] [address] Care Team Providers Name Role Phone Donaldo Cool M.D. Unavailable Unavailable Gail Faulkner Unavailable Unavailable Unavailable Unavailable Unavailable Functional Status Functional Status Health Issues Name Dates Details Functional status health issues are not documented Status: Cognitive Status Health Issues Name Dates Details Cognitive status health issues are not documented Status: Problems Name Dates Details Nocturia (788.43, R35.1) Status: Active Prophylactic antibiotic (V58.62, Z79.2) Status: Active History of malignant neoplasm of bladder (V10.51, Z85.51) Status: Resolved Bladder cancer screening (V76.3, Z12.6) Status: Active Meatal stenosis (598.9, N35.9) Status: Active Chronic trigonitis (595.3, N30.30) Status: Active Medications Name Dates Details Aspirin [...] smoker Vital Signs Date Test Result Details No Known Vitals to report Results Date Description Value Details Results not documented Plan of Care Name Dates Details Planned Observations Planned Goals not documented Planned Encounters Appointment; Provider: Donaldo Cool M.D. On 09:00 Interventions Provided Medication ChangesCiprofloxacin HCl - 500 MG Oral Tablet - Completed Instructions Name Dates Details Instructions not documented Encounters Appointment; Donaldo Cool M.D. On 20-Apr-2016 Encounter Diagnosis: Problem not documented 08:45
--- OUTSIDE RECORDS SUMMARY | 2017-05-04 18:25 | External Medical Summary | Referral Summary ---
:1955 Author Organization [facility] Address [address] [place] [address] TATIANA Roger [address] Care Team Providers Name Role Phone Nicole Donohue Primary Care Physician Encounter [facility] Date(s): 11/04/14 - 11/04/14 [facility] [address] [place] [address] T[place]IANA Roger [phone] [place] Discharge Diagnosis: MALIGNANT [...] QID, # 20 tabs, 2 Refill(s), Pharmacy: [id number], 1 tabs Oral QID Start Date: 12/05/14 [...] section Immunizations Vaccine Date Refusal Reason BCG1 11/04/14 BCG2 07/08/14 BCG 04/08/14 BCG3 01/07/14 tetanus/diphth/pertuss (Tdap) adult/adol 10/18/10 1Result Comment: Vial contains 1--8x10 [place] Forming Units of Bacillus of [place]met[place] and Emilie per [id number] Comment: Lot [id number] Exp - 20143Result Comment: BCG mixed per [...] Follow Up With: Where: When: Nicole Donohue [address] [place] [address] Drive; [place] [address] Business (1) Within 3 to 5 days Comments: Follow Up With: Where: When: Cristhian Stephen [address] [place] [address] Drive; [place] [address] Business (1) In 2 weeks 11/18/2014 Comments: [...] scheduled next cystoscopy on November. BCG Lot [id number]. Exp - 09/24/2015. Future Scheduled TestsReferralReturn to Clinic 10/10/14 10:29 AM Referrals to Other Providers Referred by: Sandra Moise
--- OUTSIDE RECORDS SUMMARY | 2017-05-04 18:25 | External Medical Summary | Referral Summary ---
:1955 Author Organization [facility] Address [address] [place] [address] TATIANA Roger [address] Care Team Providers Name Role Phone No PCP, States Primary Care Physician Encounter [facility] Date(s): 12/17/15 - 12/17/15 [facility] [address] [place] [address] T[place]NA Roger [phone] [place] Discharge Diagnosis: Personal history of bladder cancer Discharge Disposition: 01-Home or Self Care Attending Physician: Cristhian Stephen JR, MD Admitting Physician: Cristhian Stephen JR, MD Vital Signs Most recent to oldest [Reference Range]: 1 Peripheral Pulse Rate [60-100 bpm] 68 bpm (12/17/15 10:30 AM) Blood Pressure [90-140/60-90 mmHg] 95/70 mmHg (12/17/15 10:30 AM) Problem List Condition Effective Dates Status [...] section Immunizations Vaccine Date Refusal Reason BCG1 10/20/15 BCG 05/12/15 BCG2 11/04/14 BCG3 07/08/14 BCG 04/08/14 BCG4 01/07/14 tetanus/diphth/pertuss (Tdap) adult/adol 10/18/10 1Result Comment: Lot [id number], Exp 11/06/2015.2Result Comment: Vial contains 1-- 8x10 [place] Forming Units of Bacillus of [place]met[place] and Emilie per [id number] Comment: Lot [id number] Exp - 10/31/201460461Auudxu Comment: BCG mixed per protocol and given [...] When: Pt States No PCP [address] [place] [address] [employer] (1) Within 3 to 5 days Comments: Follow Up With: Where: When: Cristhian Stephen [address] [place] [address] Drive; [place] [address] [employer] (1) In 6 months 06/17/2016 Comments: Extracted from: Title: Office Visit Note Author: Cristhian Stephen JR, MD Date: 12/17/15 Assessment/Plan 1.Personal history of bladder cancer Repeat cystoscopy for follow-up bladder cancer in 6 months. To come and see me sooner ifgeeta sees blood in her urine. Drink plenty of liquids. Ordered: Office Visit Level 2 Est [address]
--- OUTSIDE RECORDS SUMMARY | 2017-05-04 18:25 | External Medical Summary | Referral Summary ---
:1955 Author Organization [facility] Address [address] [place] [address] TATIANA Roger [address] Care Team Providers Name Role Phone No PCP, States Primary Care Physician Encounter [facility] [id number] Date(s): 10/20/15 - 10/20/15 [facility] [address] [place] [address] T[place]IANA Roger [phone] [place] Discharge Diagnosis: Essential hypertension Discharge Diagnosis: Bladder cancer Discharge Disposition: 01-Home or Self Care Attending Physician: Cristhian Stephen JR, MD Admitting Physician: Cristhian Stephen JR, MD Vital Signs Most recent to oldest [Reference Range]: 1 Temperature Tympanic [36.6-38.1 degC] 36.4 degC *LOW* (10/20/15 1:30 PM) Peripheral Pulse Rate [60-100 bpm] 77 bpm (10/20/15 1:30 PM) Blood Pressure [90-140/60-90 mmHg] 102/62 mmHg (10/20/15 1:30 PM) SpO2 98 % (10/20/15 1:30 PM) Problem List Condition Effective Dates Status [...] tetanus/diphth/pertuss (Tdap) adult/adol 10/18/10 1Result Comment: Lot #[id number], Exp 11/06/2015.2Result Comment: Vial contains 1-- 8x10 [place] Forming Units of Bacillus of [place]met[place] and Emilie per [id number] Comment: Lot [id number] Exp - 10/31/201442515Vudgqg Comment: BCG mixed per protocol and given [...] Education Author: Cristhian Stephen JR, MD Date: 10/20/15 Follow Up With: Where: When: Pt States No PCP [address] [place] [address] Business (1) Within 3 to 5 days Comments: Follow Up With: Where: When: Cristhian Stephen [address] [place] [address] Drive; [place] [address] Business (1) In 2 weeks 11/03/2015 Comments: Extracted from: Title: Procedure Note Author: Cristhian Stephen JR, MD Date: 10/20/15 Assessment/Plan 1.Bladder cancer, Malignant tumor of urinary bladder Patient scheduled for another cystoscopyin 3 months. Or to come and see me sooner ifblood in the urine. Prescription ofKeflex 500 mg 4 times a day was given to patient to last for 3 days. Patient will check on my nursecomputerwhen the next 6follow-up cystoscopy to recheck bladder tumor is going to happen. Patient will call mewhen she is ready to have therecheck cystoscopyin 3 months. 2.Essential hypertension Continue pindolol
--- OUTSIDE RECORDS SUMMARY | 2017-05-04 18:25 | External Medical Summary | Referral Summary ---
:1955 Author Organization [facility] Address [address] [place] [address] TATIANA Roger [address] Care Team Providers Name Role Phone No PCP, States Primary Care Physician Encounter [facility] Date(s): 12/25/14 - 12/25/14 [facility] [address] [place] [address] T[place]IANA Roger [phone] [place] Discharge Diagnosis: History of bladder cancer Discharge Disposition: 01-Home or Self Care Attending Physician: Cristhian Stephen JR, MD Admitting Physician: Cristhian Stephen JR, MD Vital Signs Most recent to oldest [Reference Range]: 1 Peripheral Pulse Rate [60-100 bpm] 72 bpm (12/25/14 8:31 AM) Blood Pressure [90-140/60-90 mmHg] 110/82 mmHg (12/25/14 8:31 AM) Problem List Condition Effective Dates Status Health Status Informant Acne(Confirmed) Active Arthritis(Confirmed) Active Enlarged ovary(Confirmed) 2005 Active Malignant tumor of urinary bladder Active (disorder)(Confirmed) Menopausal symptom(Confirmed) 2007 Active Migraine headache(Confirmed) Active PAF (paroxysmal atrial Active fibrillation)(Confirmed) Allergies, Adverse Reactions, Alerts No Known Medication Allergies Medications cephalexin 500 mg oral tablet 500 mg 1 tabs, Oral, QID, Take as directed., # 20 tabs, 2 Refill(s), 1 tabs Oral QID Start Date: 06/26/15 Status: Ordereddiltiazem 0 Refill(s) Start Date: 12/25/14 [...] adult/adol 10/18/10 1Result Comment: Vial contains 1--8x10 [place] Forming Units of Bacillus of Calmet[place] and Emilie per [id number] Comment: Lot [id number] Exp - 20143Result Comment: BCG mixed per [...] Education Author: Cristhian Stephen JR, MD Date: 12/25/14 Follow Up With: Where: When: Nicole Donohue [address] [place] [address] Drive; [place] [address] Business (1) Within 3 to 5 days Comments: Follow Up With: Where: When: Cristhian Stehpen [address] [place] [address] Drive; [place] [address] Business (1) In 6 months 06/27/2015 Comments: Extracted from: Title: Office Visit Note Author: Cristhian Stephen JR, MD Date: 12/25/14 Assessment/Plan History of bladder cancer patient is doing well. Voiding well. Have not seen any bleeding in her urine. No frequency or pain on urination. I would like to use see her again in a week before the next visit which will be about a year for the next cystoscopy (her secondonce a year cystoscopyto recheck bladder tumor). Or to come and see me sooner if any time if she notices blood in her urine. 15 minute face to face visit with 2/3 of the visit devoted to counseling. . Ordered: Office Visit Level 3 Est 22310 Future Scheduled TestsReferralReturn to Clinic 10/10/14 10:29 AM Referrals to Other Providers Referred by: Sandra Moise
--- OUTSIDE RECORDS SUMMARY | 2017-05-04 18:28 | External Medical Summary | Continuity of Care Document ---
:1955 Author Organization [facility] Allergies Active Description Code Type Severity Reaction Onset Reported/ Identified Relationship Clinical to Patient Status Yes No Known 36924 3 N/A N/A 05/18/1024 Drug 0 Allergies Medications Medication Packaging Start Date Stop Date Route Dosage Sig Tablet 04/14/2016 PERCOCET take 1 tablet by oral route once 30 minutes prior to biopsy. Tablet 04/14/2016 MISOPROSTOL take 1 tablet by oral route or vaginally at bedtime the day before endometrial biopsy and again once the morning of. Problems Procedures Results Encounters ACCT No. Visit Discharge Status Pt. Type Provider Facility Loc./Unit Complaint Date/Time [id number] 09/10/2013 09/10/2013 [facility] Outpatient 13:40:00 23:59:59 [id number] 09/05/2013 09/05/2013 CLS Outpatient 13:45:00 23:59:59 [id number] 09/03/2013 09/03/2013 CLS Outpatient 13:39:00 23:59:59 [id number] 08/23/2013 08/23/2013 CLS Outpatient 14:21:00 23:59:59 [id number] 07/11/2013 07/11/2013 CLS Outpatient 09:48:00 23:59:59 [id number] 04/14/2016 04/14/2016 CLS Outpatient [place], 15:20:00 23:59:59 Paty Ramírez [id number] 04/12/2016 04/12/2016 [facility] Outpatient [place], 08:34:00 23:59:59 Paty Ramírez [id number] 04/21/2016 Document 08:30:00 Registration
--- OUTSIDE RECORDS SUMMARY | 2017-05-04 18:28 | External Medical Summary | Referral Summary ---
:1955 Author Organization [facility] Address [address] [place] [address] TATIANA Roger [id number] Care Team Providers Name Role Phone No PCP, States Primary Care Physician Encounter [facility] [id number] Date(s): 12/08/14 - 12/08/14 [facility] [address] [place] [address] TATIANA Roger [phone] [place] Discharge Disposition: 01-Home [...] QID, # 20 tabs, 2 Refill(s), [facility] Oral QID Start Date: 12/05/14 [...] adult/adol 10/18/10 1Result Comment: Vial contains 1--8x10 [place] [employer] Units of Bacillus of [place] and Emilie per [id number] Comment: Lot [id number] Exp - [id number] Comment: BCG mixed per [...]
[2017-05-04 20:36] VITALS: BMI 23.3
--- NOTE | 2017-05-04 21:18 | History & Physical Report ---
History of Present Illness Date: 05/04/17 Chief complaint: abnormal facial sensation HPI: Mrs. Herrera is a 61-year-old right-handed female who presented to the emergency room today by recommendation of her physician's office for evaluation of facial asymmetry. The patient reports that she's had abnormal symptoms in the left side of her head and neck for 5 days starting with hypersensitivity the left side of her scalp to palpation originating 5 days ago followed by onset of anterior headaches 2 days ago in the morning which resolved after she ate breakfast. She then worked in her yard all day long and at the end of the day had recurrent headache with backache and generalized myalgias. Symptoms persisted overnight and into Monday morning with persistent bilateral frontal headache which resolved after breakfast and taking Tylenol and/or coffee. She again worked in the yard and that evening thought she felt something swollen behind her left ear and possibly in the submental region. She also noted that her tongue seems swollen on the left side but did not notice other facial abnormalities until this morning when she described an abnormal sensation when she ate breakfast reported only that "something felt weird". She then looked in the mirror and reports that her face looked different and that when she tried smiling or frowning the left side of her face didn't move normally. She denies any other neurological symptoms (excluding chronic numbness in the right hand and arm which been present for years and is unchanged from baseline) including difficulty speaking or swallowing, double vision or visual loss, weakness in the arms or legs, clumsiness, stumbling, sensory change, or paresthesias. She was seen at her primary care physician's office this afternoon and referred to the emergency room for further assessment. The patient initially attributed her symptoms to Nunez's palsy but in the ER had no upper facial involvement. Facial droop was present and tongue deviated to the right. Noncontrast CT of the head was negative for bleed and patient is admitted at this time with possible acute/subacute stroke. The patient takes aspirin 325 mg daily due to past history of atrial fibrillation. Review of Systems All systems PM: 10-point ROS was reviewed, no additional remarkable complaints except (chronic tinnitus, occasional palpitations but no recognized episodes of atrial fibrillation since August 2014, chronic back and shoulder pain, easy bruisability, remainder of multisystem review was negative or as per history of present illness.) [facility] Past medical history 1. Paroxysmal atrial fibrillation-under the care of Dr. Lewis 2. MVP 3. Bladder cancer-multiple cystoscopies, BCG administration 4. Diverticulosis Surgical History: Cystoscopies, breast biopsy-benign disease 2005, oophorectomy- benign disease 2005. . 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 Gail Faulkner Does not have a DPOA but would want her 3 siblings to share decision making if she was unable to do so; full code Medications Home Medications Medication Instructions Recorded Confirmed Type Ascorbic Acid [Vitamin C] 1,000 mg PO DAILY #0 02/14/14 05/04/17 History Cholecalciferol (Vitamin D3) 3,000 tab PO DAILY #0 05/21/14 05/04/17 History [Vitamin D3] Glucosamine/Chondro Lobo A/C/Mn 1 tab PO DAILY #0 05/21/14 05/04/17 History [Glucosamine-Chondroitin Cap] Magnesium Amino Acid Chelate 100 mg PO DAILY #0 05/21/14 05/04/17 History [Magnesium] Aspirin 325 mg PO DAILY #0 tab 12/05/14 05/04/17 History Pindolol 2.5 mg PO BID #0 tab 07/02/15 05/04/17 History Acetaminophen [Acetaminophen Extra 1,000 mg PO Q6H PRN 05/04/17 05/04/17 History Strength] Lutein 20 mg PO DAILY 05/04/17 05/04/17 History [place]-3/Dha/Epa/Fish Oil [Fish Oil 2,000 mg PO DAILY 05/04/17 05/04/17 History 1,000 mg Softgel] Allergies Allergy/AdvReac Type Severity Reaction Status Date / Time No Known Allergies Allergy Verified 05/04/17 17:22 Exam Vital Signs: Temperature 97.2 F 05/04/17 19:29 Pulse Rate 74 05/04/17 19:29 Respiratory Rate 16 05/04/17 19:29 Blood Pressure 135/82 05/04/17 19:29 Pulse Oximetry 99 11/16/17 19:29 EXAM: General-NAD, alert, fluent speech HEENT-PERRL, EOMI without nystagmus, slight right ptosis, conjugate gaze, conjunctiva clear, sclera anicteric, left nasolabial fold flattening and decreased movement left side of mouth, tongue deviates slightly to the right, oropharynx clear, neck supple and without adenopathy, no postauricular adenopathy or mass palpable Lungs-respirations nonlabored, good airflow, breath sounds clear Cardiac-regular rhythm, S1-S2, no murmur appreciated, soft click present intermittently but not consistently Abd-soft, nontender, without palpable mass, bowel sounds present Ext-without edema Skin-without wounds or rash MS-no acute joint inflammation or synovitis Neuro-cranial nerves notable for minor right ptosis, left nasolabial fold flattening and decreased movement of the left lower face, slight tongue deviation to the right; sensation intact to light touch/cold across the face and 4 extremities; motor tone normal, no tremor, power normal with 5/5 power proximally and distally 4 extremities, no drift Psych-flat affect Height/Weight/BMI: Height 1.7 m Weight 67.5 kg Body Mass Index 23.3 Results - Labs CBC & Chem 7: 05/04/17 17:21 17 17:21 Labs: Liver enzymes normal, UA unremarkable - Imaging and Cardiology CT scan - head Status: image reviewed by me (no acute pathology/hemorrhage; small vessel ischemic changes in the periventricular and subcortical white matter consistent with age) carotid Doppler Status: image reviewed by me (and without evident abnormalities-formal report pending) Assessment and Plan (1) CVA (cerebral vascular accident) Problem details: L-Facial involvement Current visit: Yes Status: Acute (2) Paroxysmal atrial fibrillation Problem details: History of Current visit: Yes Status: Resolved Assessment and Plan: Assessment: Left facial weakness Probable ischemic stroke Paroxysmal atrial fibrillation MVP History bladder cancer Plan: Patient is admitted with probable ischemic stroke resulting in left facial weakness. Likely right MCA distribution. Carotid Dopplers obtained this evening, echocardiogram scheduled-patient is previously seen Dr. Lewis and will ask him to read the study. Patient has a known past history of paroxysmal atrial fibrillation, she has recognized symptoms twice in the past and does not describe recent symptoms but certainly embolic event triggering stroke is worrisome. Consult Dr. Lewis. Patient currently takes aspirin for stroke prophylaxis but suggests that warfarin was recommended in the past. Telemetry initiated, EKG previously ordered but has not yet been completed. Patient indicates objection to anticoagulated at present-we'll initiate Plavix now and reassess tomorrow. Lipids pending, check A1c. Rovastatin to be initiated-patient indicated aversion to statins because they kill people and I suspect she'll declined medication. MRI/MRA to be obtained in the morning. Hold pindolol to permit increase in blood pressure; normal saline to be initiated in the event boluses are needed for blood pressure support. DVT prophylaxis with SCD's/Lovenox. Hospital Course Summary Disclaimer: The visit summary below is not to be considered part of the above Progress Note. Hospital Course: 05/04/17 21:43 Patient is admitted with probable ischemic stroke resulting in left facial weakness. Likely right MCA distribution. Carotid Dopplers obtained this evening, echocardiogram scheduled-patient is previously seen Dr. Lewis and will ask him to read the study. Patient has a known past history of paroxysmal atrial fibrillation, she has recognized symptoms twice in the past and does not describe recent symptoms but certainly embolic event triggering stroke is worrisome. Consult Dr. Lewis. Patient currently takes aspirin for stroke prophylaxis but suggests that warfarin was recommended in the past. Telemetry initiated, EKG previously ordered but has not yet been completed. Patient indicates objection to anticoagulated at present-we'll initiate Plavix now and reassess tomorrow. Lipids pending, check A1c. Rovastatin to be initiated-patient indicated aversion to statins because they kill people and I suspect she'll declined medication. MRI/MRA to be obtained in the morning. Hold pindolol to permit increase in blood pressure; normal saline to be initiated in the event boluses are needed for blood pressure support. DVT prophylaxis with SCD's/Lovenox.
[2017-05-04] MEDS ORDERED: ACETAMINOPHEN 325 MG TABLET PO PRN (21:35)
[2017-05-04] MEDS: NS 1,000 ML IV SCH (22:12)
[2017-05-04] MEDS: CLOPIDOGREL 75 MG TABLET PO SCH (22:13)
--- NOTE | 2017-05-05 08:26 | Ultrasound Report ---
Indication: possible cva PROCEDURE: US carotid doppler BI: TECHNIQUE: Grayscale, color and duplex Doppler imaging was performed of the carotid systems bilaterally. Velocities in cm/sec - validated velocity measurements with angiographic measurements, velocity criteria are extrapolated from diameter data as defined by the Society of Radiologists in Ultrasound Consensus Conference Radiology 2003; 229;340-346. RIGHT: PSV ICA 93 EDV ICA 25 PSV CCA 99.4 EDV CCA 17.3 PSV ECA 112 ICA Diameter reduction <20% (0.8-1.0)% LEFT: PSV ICA 129 EDV ICA 37.8 PSV CCA 133 EDV CCA 28.4 PSV ECA 118 ICA Diameter reduction 10%-30% (1.0-1.2 PSV<110)% The right vertebral artery is patent with cephalic flow. The left vertebral artery is patent with cephalic flow. No significant atherosclerotic plaque identified. There are borderline elevated velocities in the left mid ICA which appears to be due to tortuosity rather than a true stenosis. The ICA to CCA ratios are normal. IMPRESSION: No hemodynamically significant carotid stenosis. There is a preliminary report by [facility]. .
--- NOTE | 2017-05-05 08:32 | CT Scan Report ---
Indication: Left-sided facial weakness PROCEDURE: CT head/brain wo con: Encounter: Initial Comparison: None Technique: Axial CT images through the head were performed without contrast. Iterative Reconstruction dose reducing technique was utilized. FINDINGS: The ventricles are of normal size, shape, and contour for the patient's age. There are scattered areas of low attenuation in the white matter which most likely represent changes from chronic microvascular ischemia. The brainstem, cerebellum, and cerebral hemispheres otherwise have a normal morphology and CT attenuation. There is no evidence of midline displacement. No hemorrhage, signs of acute territorial stroke, mass effect, mass lesions, or edema is evident. The visualized portions of the skull base, midface, and calvarium demonstrate no abnormality. The paranasal sinuses are well aerated and free of significant disease. The tympanic and mastoid cavities appear normal. IMPRESSION: No acute intracranial abnormality or hemorrhage. There is a preliminary report by [facility]. .
[2017-05-05] MEDS: NS 1,000 ML IV SCH (08:39)
[2017-05-05] MEDS ORDERED: ASCORBIC ACID 500 MG TABLET PO SCH (09:00)
[2017-05-05] MEDS ORDERED: OMEGA-3 ACID ESTERS 1 GM CAPSULE PO SCH (09:00)
[2017-05-05] MEDS ORDERED: CHOLECALCIFEROL PO SCH (09:00)
[2017-05-05] MEDS ORDERED: NON-FORMULARY MEDICATION 1 EACH EACH (Ascorbic Acid [Vitamin C] 1,000 MG) PO SCH (09:00)
[2017-05-05] MEDS ORDERED: [UNRECOGNIZED DRUG - OTHER] PO SCH (09:00)
[2017-05-05] MEDS ORDERED: LUTEIN 20 MG CAPSULE PO SCH (09:00)
[2017-05-05] MEDS ORDERED: ENOXAPARIN 40 MG/0.4 ML INJECTION SQ SCH (09:00)
[2017-05-05] MEDS ORDERED: NON-FORMULARY MEDICATION 1 EACH EACH (Omega-3/Dha/Epa/Fish Oil [Fish Oil 1,000 Mg Softgel] PO SCH (09:00)
[2017-05-05] MEDS: CLOPIDOGREL 75 MG TABLET PO SCH (10:07)
[2017-05-05] MEDS ORDERED: NS 50 ML ONE (10:57)
[2017-05-05] MEDS ORDERED: GADOBUTROL 10mMol/10ml INJECTION IVP ONE (10:57)
[2017-05-05] MEDS ORDERED: SALINE FLUSH 10ml SYRINGE ONE (10:57)
--- NOTE | 2017-05-05 11:03 | Progress Note ---
<Hannah Lal D - Last Filed: 05/05/17 11:00> - Date 05/05/17 Subjective: Laquita was seen before MRI. She is noticing improvement, but the left side of her face is still drooping and she has problems forming her lips around a straw. She denies dysphagia. No confusion/mental status changes (per friend). No focal weakness or fine motor compromise. She was up and ambulatory this am and denied weakness/dizziness. She notes fairly frequent headaches, and the right temporal/parietal area has been slightly tender to the touch for the last week, but improving. She denies trauma. She also states that when she bends over , she notices increased pressure in her head. Objective Vital signs: Temperature 96.3 F L 05/05/17 07:00 Pulse Rate 74 05/05/17 07:00 Respiratory Rate 20 05/05/17 07:00 Blood Pressure 131/77 05/05/17 07:00 Pulse Oximetry 98 05/05/17 07:00 Height/Weight/BMI: Height 1.7 m Weight 67.5 kg Body Mass Index 23.3 - Constitutional Present: no acute distress, well nourished, well developed, thin - Routine HEENT Exam Head: Present: normocephalic Eye: Present: PERRL. Absent: conjunctival icterus ENT: Present: mucous membranes moist, oropharynx clear - Routine Respiratory Exam Present: CTA bilaterally - Routine Cardiovascular Exam Present: RRR (sinus arrhythmia - increased rate with inspiration), S1, S2 - Routine Abdominal Exam Present: soft, normoactive bowel sounds, non distended, non tender - Routine Extremities Exam Present: no edema, pulses intact, normal capillary refill - Routine Musculoskeletal Exam Musculoskeletal: Present: moving extremities well - Routine Skin Exam Present: intact, dry, warm - Routine Neurological Exam Present: alert, oriented X3, moving all extremities, normal tone, vision grossly intact, hearing grossly intact, facial asymmetry, normal speech. Absent : CN II-XII intact (subtle left facial droop with min flattening of left nasolabial fold; subtle right jose deviation), sensory deficit, motor deficit, altered mental status, abnormal gait, hemineglect alternating fingers to assess fine motor coordination was equal b/l - Routine Psychiatric Exam Present: normal affect, normal thought process, cooperative Results - Labs CBC & Chem 7: 05/04/17 17:21 05/05/17 05:18 Assessment and Plan (1) CVA (cerebral vascular accident) Problem details: L-Facial involvement Status: Acute (2) Paroxysmal atrial fibrillation Problem details: History of Status: Resolved Assessment and Plan: Assessment: Left facial weakness Probable ischemic stroke Paroxysmal atrial fibrillation MVP History bladder cancer Plan: Stroke w/u including echo, carotids, MRI/MRA pending. Continue Plavix, statin. Expect eval by Dr. Lewis today. Tele - sinus. BP stable off pindolol - no hypotension. A1c normal at 5.1%. DVT Prophylaxis: Lovenox Resuscitation Status: Full Code Hospital Course Summary Disclaimer: The visit summary below is not to be considered part of the above Progress Note. Hospital Course: 05/04/17 21:43 Patient is admitted with probable ischemic stroke resulting in left facial weakness. Likely right MCA distribution. Carotid Dopplers obtained this evening, echocardiogram scheduled-patient is previously seen Dr. Lewis and will ask him to read the study. Patient has a known past history of paroxysmal atrial fibrillation, she has recognized symptoms twice in the past and does not describe recent symptoms but certainly embolic event triggering stroke is worrisome. Consult Dr. Lewis. Patient currently takes aspirin for stroke prophylaxis but suggests that warfarin was recommended in the past. Telemetry initiated, EKG previously ordered but has not yet been completed. Patient indicates objection to anticoagulated at present-we'll initiate Plavix now and reassess tomorrow. Lipids pending, check A1c. Rovastatin to be initiated-patient indicated aversion to statins because they kill people and I suspect she'll declined medication. MRI/MRA to be obtained in the morning. Hold pindolol to permit increase in blood pressure; normal saline to be initiated in the event boluses are needed for blood pressure support. DVT prophylaxis with SCD's/Lovenox. 05/05/17 Stroke w/u including echo, carotids, MRI/MRA pending. Continue Plavix, statin. Expect eval by Dr. Lewis today. Tele - sinus. BP stable off pindolol - no hypotension. A1c normal at 5.1%. <Corrina Moncada - Last Filed: 05/05/17 22:02> - Date 05/05/17 Objective Vital signs: Results - Labs CBC & Chem 7: 05/04/17 17:21 05/05/17 05:18 Assessment and Plan (1) Left-sided Nunez's palsy Status: Acute (2) CVA (cerebral vascular accident) Problem details: L-Facial involvement Status: Ruled-out (3) Paroxysmal atrial fibrillation Problem details: History of Status: Resolved Assessment and Plan: I have independently evaluated and examined this patient. I reviewed the chart, the patient's history, and the BLEACH ANALYST/PA's documented findings as above. We discussed and formulated the assessment and plan as above with additions as below: Laquita reports that her face doesn't seem any better today. She continues to have minor pain behind her left ear. Family members at the bedside report that her left eye isn't blinking and doesn't close fully. There is minor left nasolabial fold flattening-less evident than yesterday and the decreased movements along the left side of the mouth are still present but also less evident than yesterday. Patient is able to wrinkle and furled the brow well. Decreased blink left eye and when she closes her eye the left eye closes slowly and only with effort. EOMI. Left external auditory canal clear but the tympanic membrane is slightly dull, no erythema or bulging. Right EC and TM are unremarkable. Left scalp without rash or vesicles. Power House Control Room Operator symmetric, no drift, motor tone normal/power normal. MRI/MRA reviewed by myself-no evidence of acute stroke or vascular anomalies; radiology confirms findings. Minor lipid disorder with total cholesterol 163, LDL 112.6, HDL 39. A1c 5.1 Echocardiogram unchanged from the past per verbal report Dr. Lewis. Telemetry reviewed-sinus rhythm consistently. EKG without acute changes. No evidence of acute ischemic process by extensive radiographic imaging of the head. Increased upper left facial weakness evident compared to yesterday and lower facial changes less apparent; prodromal symptoms preceded onset of facial weakness, ear pain present-no vesicles evident at this time. At this point I don't believe the patient has had a stroke but instead has acute Nunez's palsy which may evolve further. Treatment will be initiated with prednisone 60 mg daily and valacyclovir thousand milligrams 3 times a day both for one week. Patient was instructed on use of eye moisturizing drops and ointment and need to patch her eye if she cannot close it completely. Stable for discharge with outpatient follow-up in the office early next week. Prior to discharge patient asked for prescription for Pradaxa indicating this and been discussed with Dr. Lewis and after thinking about it further she's decided to switch to full anticoagulation due to history of A. fib. Aspirin discontinued. - Time spent with patient Time with patient PN: 35 minutes Coordination of Care: >50% of visit spent providing counseling/coordination of care Hospital Course Summary Disclaimer: The visit summary below is not to be considered part of the above Progress Note.
--- NOTE | 2017-05-05 13:22 | Magnetic Resonance Report ---
Indication: Left facial sensation changes, evaluate for cva PROCEDURE: MR head/brain/ang head wo/w: Encounter: Initial Comparison: CT head from yesterday Technique: Multiplanar, multisequence, MR imaging of the head with and without contrast was acquired. MRA imaging of the head without contrast was acquired. Maximum intensity projection (MIP) reformatted images were produced. 3-dimensional volume rendered imaging of the makah of [place] was performed by the technologist on a dedicated workstation. Contrast: 10 mL of Gadavist Findings: MRI head: There is subtle asymmetric enhancement in the left internal carotid origin canal seen in postcontrast image #7. There is no discrete mass seen in this location on the T2-weighted images. The enhancement appears to involve the superior aspect of the IAC in the expected location of the cranial nerve VII. The ventricles are of normal size, shape, and contour for the patient's age. There are a few white matter lesions seen in the periatrial white matter of the parietal and temporal lobes. This is slightly asymmetric in the left posterior temporal lobe. However these lesions do not restrict diffusion and do not show postcontrast enhancement. The overall amount of white matter disease is within the normal range for the patient's age. The brain stem, cerebellum, and cerebral hemispheres otherwise have a normal morphologic appearance as well as MR signal intensity on all pulse sequences. There are no areas of restricted diffusion on diffusion weighted imaging to suggest an acute infarct. There is no evidence of an intracranial hemorrhage, or hydrocephalus. The visualized portions of the orbits, calvarium, paranasal sinuses, and skull base demonstrate no significant abnormality. MRA head: The intracranial portions of the vertebral arteries, internal carotid arteries, and their major branches show no significant stenosis or other vascular anomaly. No aneurysms or vascular malformations are evident. Partial origin of the right posterior cerebral artery noted incidentally. Isolated left origin of the SOURAV also seen. Impression: 1. MRI head: No evidence of acute infarct. There is subtle asymmetric enhancement in the left external auditory canal apparently involving the facial nerve that suggests a seventh cranial neuritis/Nunez's palsy. 2. MRA head: No evidence of aneurysm or flow-limiting arterial stenosis. .
--- NOTE | 2017-05-05 13:26 | Magnetic Resonance Report ---
Indication: Left facial sensation changes, evaluate for cva PROCEDURE: MR angio neck wo/w con: Comparison: None Technique: MRA imaging of the neck with and without contrast was acquired. Maximum intensity projection (MIP) reformatted images were produced. Contrast: 10 mL Gadavist Findings: The carotid bifurcations are widely patent bilaterally with normal flow-related enhancement within the common carotid, internal carotid, and external carotid arteries. The vertebral arteries are normal in size without evidence of significant stenosis. Impression: Unremarkable MRA of the neck with and without contrast. No stenosis by NASCET criteria. .
[2017-05-05 15:49] VITALS: BP 120/66; PULSE 73; RESP 12; TEMP 97.5; O2SAT 100
--- NOTE | 2017-05-05 16:49 | Echocardiogram ---
DATE OF STUDY 05/04/2017 INDICATIONS Stroke. TECHNICAL QUALITY Technically good 2D, M-mode, Doppler echocardiographic images were submitted for interpretation. FINDINGS 1. CARDIAC CHAMBERS: All cardiac chamber measurements are normal. Aortic root diameter is normal. Left atrial transverse diameter is 3.5 cm, remains normal. Left atrial size visually appears within upper-normal range. LVEDP is 5.37 cm. RV size and contractility appear normal. 2. LEFT VENTRICLE: Normal wall thickness. Wall motion analysis is normal. LV systolic function is normal. EF 69%. Diastolic function parameters are normal. 3. VALVES: The aortic valve is trileaflet and exhibits normal structure and motion. Normal valve excursion. Mitral valve exhibits mild prolapse and appears to involve the posterior leaflet more, as noted on the short-axis view. Tricuspid valve structure and motion appear normal with normal valve excursion. 4. DOPPLER: [id number] mitral regurgitation (2+). Trace aortic regurgitation. Mild tricuspid regurgitation. Trace pulmonic insufficiency. 5. Normal systolic pulmonary artery pressure estimated at 31 mmHg per Bernoulli equation. Normal central venous pressure. 6. No evidence of pericardial effusion, intracardiac masses, thrombi, vegetations or shunts. Transesophageal echocardiogram may be of further value and more accurate assessment. 7. Bubble study was not performed. IMPRESSION 1. Normal cardiac chamber size. 2. Normal LV systolic and diastolic function. EF 69%. 3. Mitral valve prolapse with [id number] mitral regurgitation (2+). 4. No evidence of pericardial effusion, intracardiac masses, thrombi, vegetations or shunts. 5. Patient was in sinus rhythm during the study. 6. Normal central venous pressure. Normal systolic PA pressure. 7. Consider transesophageal echocardiogram for further assessment of cardiac source of embolus. MTDD
[2017-05-05] MEDS ORDERED: VALACYCLOVIR 500 MG TABLET PO SCH (19:00)
--- NOTE | 2017-05-05 19:42 | Cardiology Consult Note ---
History of Present Illness Consult reason: atrial fibrillation History of present illness: 61-year-old female well known to me with the paroxysmal atrial fibrillation and mitral valve prolapse. She presented to not limited [facility] emergency department and a referral from her PCPs office for a head CT scan. She presented with a tenderness over the left side of her head left-sided earache associated with a inability to close her mouth properly while having lunch and then developed a facial droop. Contacted Dr. Faulkner's office, her PCP was around 4 PM so she was referred to for head CT scan. ED evaluation of the to admission to rule out stroke. MRI of the brain showed some inflammatory changes in the left auditory canal and no evidence of acute stroke. She denies any associated speech difficulty diplopia or visual changes or leg weakness and trouble with walking or balance denies vertigo. She denies any recent cold like symptoms sore throat rhinorrhea and congestion cough or phlegm production no fever or chills. Patient has known history of a paroxysmal atrial fibrillation chads 2 score of 1 for which he has refused anticoagulant therapy but remained on a full aspirin 325 mg daily. Her chads 2 score will return 2 in less than 18 months She had an episode required emergency department visit about a 2 and a half years ago. She gets occasional palpitations described as a fluttering of her heart that last about an 15 seconds , several times a month. She's done some gardening last a few months and she does a lot of heavy lifting and carrying at work and it does not produce any angina dyspnea she denies any orthopnea PND or lower extremity edema. Patient also was noted to have a slight hyperlipidemia, she's refused statin drugs and she wanted my opinion in that regards. She says she would much rather handle that with the diet and exercise. She is concerned about medication side effects. She also tells me she is concerned about taking blood thinners due to put she hears on TV commercials about quitting "bad drugs" . she also read somewhere that Lipitor did not work. Review of Systems All systems PM: 10-point ROS was reviewed, no additional remarkable complaints except - Gastrointestinal Gastrointestinal: Absent: change in bowel habits, hematochezia, melena PFSH Patient Stated Medical History Cardiac Arrhythmia Yes: Afib 08/2014 Other Musculoskeletal Yes: Back/Joint/shoulder pain Chemotherapy Yes: [facility] Medical History CVA (cerebral vascular accident) (Acute Medical) L-Facial involvement Paroxysmal atrial fibrillation (Resolved Medical) History of Medical History Updates: Mitral valve prolapse. Osteoarthritis. HL. Osteoporosis Surgical History: Cystoscopies, breast biopsy-benign disease 2005, oophorectomy- benign disease 2005. . - Social History Smoking status: Never smoker Current residence: Apartment/Private Home Medications Home Medications Medication Instructions Recorded Confirmed Type Ascorbic Acid [Vitamin C] 1,000 mg PO DAILY #0 02/14/14 05/04/17 History Cholecalciferol (Vitamin D3) 3,000 tab PO DAILY #0 05/21/14 05/04/17 History [Vitamin D3] Glucosamine/Chondro Lobo A/C/Mn 1 tab PO DAILY #0 05/21/14 05/04/17 History [Glucosamine-Chondroitin Cap] Magnesium Amino Acid Chelate 100 mg PO DAILY #0 05/21/14 05/04/17 History [Magnesium] Pindolol 2.5 mg PO BID #0 tab 07/02/15 05/04/17 History Acetaminophen [Acetaminophen Extra 1,000 mg PO Q6H PRN 05/04/17 05/04/17 History Strength] Lutein 20 mg PO DAILY 05/04/17 05/04/17 History Wendel-3/Dha/Epa/Fish Oil [Fish Oil 2,000 mg PO DAILY 05/04/17 05/04/17 History 1,000 mg Softgel] Allergies Allergy/AdvReac Type Severity Reaction Status Date / Time No Known Allergies Allergy Verified 05/04/17 17:22 Exam Vital signs: Temperature 97.5 F 05/05/17 15:00 Pulse Rate 73 05/05/17 15:00 Respiratory Rate 12 05/05/17 15:00 Blood Pressure 120/66 05/05/17 15:00 Pulse Oximetry 100 05/05/17 15:00 - Constitutional no acute distress, cooperative - Routine HEENT Exam Head: Present: normocephalic, atraumatic Eye: Present: EOMI, PERRL. Absent: nystagmus ENT: Present: mucous membranes moist - Routine Neck Exam Present: normal carotid upstroke. Absent: JVD, carotid bruit, lymphadenopathy, thyromegaly - Routine Respiratory Exam Present: CTA bilaterally - Routine Cardiovascular Exam Present: RRR, S1, S2 (normal), no murmur, click. Absent: bradycardia, tachycardia - Routine Abdominal Exam Present: soft, normoactive bowel sounds, non distended, non tender. Absent: organomegaly, mass - Routine Extremities Exam Present: no edema, non tender, pulses intact, normal capillary refill. Absent: cyanosis, clubbing - Routine Skin Exam Present: intact, dry. Absent: cyanosis, erythema, pallor, mottling, petechiae - Routine Neurological Exam Present: alert, oriented X3, normal reflexes (active 3+ bilateral knee jerks and ankle reflexes normal no babinski), moving all extremities, vision grossly intact, hearing grossly intact, facial asymmetry, normal speech. Absent: CN II- XII intact (she does not blink well on the left, does not close her left eye as intensely and the left nasal labial fold appears slightly asymmetrical but no facial droop appreciated), sensory deficit, motor deficit, altered mental status , hemineglect - Routine Psychiatric Exam Present: cooperative, anxious Results 05/04/17 17:21 05/05/17 05:18 Lipids 05/05/17 Range/Units 05:18 Triglycerides 57 (35-135) MG/DL Cholesterol 163 (132-199) MG/DL HDL Cholesterol 39 L (40-60) MG/DL Cholesterol/HDL Ratio 4.2 H (0-4.0) RATIO Comprehensive Metabolic Panel 05/05/17 Range/Units 05:18 Sodium 143 (134-144) MEQ/L Potassium 3.9 (3.6-5) MEQ/L Chloride 108 H (98-107) MEQ/L Carbon Dioxide 28 (22-30) MEQ/L BUN 9.0 (7-17) MG/DL Creatinine 0.7 (0.7-1.2) MG/DL Glucose 84 (65-110) MG/DL Calcium 8.7 D (8.4-10.2) MG/DL Albumin 3.5 (3.5-5.0) G/DL Intake and Output 05/05/17 05/05/17 05/05/17 06:59 14:59 22:59 Intake Total 2029 / 2029 240 / 240 Output Total 650 / 650 750 / 750 800 / 800 Balance -650 / -650 1280 / 1280 -560 / -560 Intake: IV 1000 / 1000 Ns 1,000 ml @ 100 mls/hr 1000 / 1000 IV .Q10H VICKY Rx#: [id number] Oral 1030 / 1030 240 / 240 Output: Urine 650 / 650 750 / 750 800 / 800 Other: Urine Appearance Clear Clear Clear Urine Color Yellow Yellow Yellow Urine Odor Normal Weight 67.6 kg Patient Weight 05/06/17 06:59 Weight 67.6 kg - Imaging and Cardiology Echo: report reviewed, image reviewed - EKG Interpretation EKG: sinus rhythm, no acute changes EKG interpretations - EKG EKG results cardiology: sinus rhythm, no acute changes Assessment and Plan - Assessment and Plan Paroxysmal atrial fibrillation currently in sinus rhythm Mitral valve prolapse Acute neurological change appears to be related to a mild Nunez's palsy other than a stroke based on clinical and head MRI results, recommend neurologist/ENT consultation may be done and outpatient settings Hypercholesterolemia/dyslipidemia, mild Very lengthy discussion about the pros and cons of anticoagulants versus aspirin therapy. I would favor anticoagulation therapy in this lady who's chads 2 score is currently at least one going to turn to 2 and just 17 months, assuming this admission event is not related to cerebral /M[employer] ischemia Patient's risks include female gender, no known hypertension or coronary artery disease that I'm aware of. She is on pindolol for A. fib and palpitations. Also reviewed with her different choices of anticoagulant therapy including a traditional warfarin versus the novel oral anticoagulants and the pros and cons also explained the potential annual risk of the major life-threatening bleed in the range of 1%, and slightly lower with the novel agents Also discussed with the patient and family the different treatment options for atrial fibrillation including the potential role for radiofrequency ablation or left atrial isolation procedures, with the latter a 3 to 6 months course of anticoagulant would become necessary . At this time I recommended neither procedure. The risk of complications . Also discussed with her the pros and cons of statin drugs at great length, I feel again if the acute event is related to a peripheral facial (7th) nerve inflammation as opposed to a non-suspected [employer] event, and her lipids may be safely managed with healthier lifestyle changes diet and exercise which is the patient's strong preference. On the other hand if she is to be determined to have suffered any kind of M[employer] ischemia and statin therapy would be strongly recommended. Again I reiterated the patient the presence for family possible side effects safety and monitoring her with those drugs. At present time I don't recommend a statin drug for her. Total time in consultation with the patient family all questions answered and, dictation with other team members was in excess of 90 minutes and this high complexity decision making case. Hospital Course Summary Disclaimer: The visit summary below is not to be considered part of the above Progress Note. Hospital Course: 05/04/17 21:43 Patient is admitted with probable ischemic stroke resulting in left facial weakness. Likely right MCA distribution. Carotid Dopplers obtained this evening, echocardiogram scheduled-patient is previously seen Dr. Lewis and will ask him to read the study. Patient has a known past history of paroxysmal atrial fibrillation, she has recognized symptoms twice in the past and does not describe recent symptoms but certainly embolic event triggering stroke is worrisome. Consult Dr. Lewis. Patient currently takes aspirin for stroke prophylaxis but suggests that warfarin was recommended in the past. Telemetry initiated, EKG previously ordered but has not yet been completed. Patient indicates objection to anticoagulated at present-we'll initiate Plavix now and reassess tomorrow. Lipids pending, check A1c. Rovastatin to be initiated-patient indicated aversion to statins because they kill people and I suspect she'll declined medication. MRI/MRA to be obtained in the morning. Hold pindolol to permit increase in blood pressure; normal saline to be initiated in the event boluses are needed for blood pressure support. DVT prophylaxis with SCD's/Lovenox. 05/05/17 Stroke w/u including echo, carotids, MRI/MRA pending. Continue Plavix, statin. Expect eval by Dr. Lewis today. Tele - sinus. BP stable off pindolol - no hypotension. A1c normal at 5.1%.
[2017-05-05] MEDS ORDERED: ROSUVASTATIN 20 MG TABLET PO SCH (21:00)
--- NOTE | 2017-05-05 22:08 | Discharge Summary ---
Discharge Information Date of admission: 05/04/17 18:56 Anticipated date of discharge: 05/05/17 Attending Physician: Corrnia Moncada MD Primary care physician: Gail Faulkner MD Consults: Consulting Provider: Ledy Lewis Reason For Exam: CVA/A. fib - Discharge Diagnosis (1) Left-sided Nunez's palsy Status: Acute (2) CVA (cerebral vascular accident) Status: Ruled-out (3) Paroxysmal atrial fibrillation Status: Resolved Left facial weakness consistent with Nunez's palsy Probable ischemic stroke-ruled out Paroxysmal atrial fibrillation MVP History bladder cancer - Procedures Procedures: Echocardiogram-formal report pending, preserved ejection fraction, no vegetation /mass described per verbal report - Laboratory Labs: 05/05/17 05:18 A1c 5.1, total cholesterol 163, LDL 112.6, HDL 39, triglycerides 57 - Radiology Radiology: CT head without contrast on 05/04/17: FINDINGS: The ventricles are of normal size, shape, and contour for the patient's age. There are scattered areas of low attenuation in the white matter which most likely represent changes from chronic microvascular ischemia. The brainstem, cerebellum, and cerebral hemispheres otherwise have a normal morphology and CT attenuation. There is no evidence of midline displacement. No hemorrhage, signs of acute territorial stroke, mass effect, mass lesions, or edema is evident. The visualized portions of the skull base, midface, and calvarium demonstrate no abnormality. The paranasal sinuses are well aerated and free of significant disease. The tympanic and mastoid cavities appear normal. IMPRESSION: No acute intracranial abnormality or hemorrhage. Carotid Doppler 05/04/17: IGGY <20 stenosis, LICA 10-30% stenosis, cephalic flow bilaterally in the vertebral arteries. MRI/MRA head on 05/05/17: MRI head: There is subtle asymmetric enhancement in the left internal carotid origin canal seen in postcontrast image #7. There is no discrete mass seen in this location on the T2-weighted images. The enhancement appears to involve the superior aspect of the IAC in the expected location of the cranial nerve VII. The ventricles are of normal size, shape, and contour for the patient's age. There are a few white matter lesions seen in the periatrial white matter of the parietal and temporal lobes. This is slightly asymmetric in the left posterior temporal lobe. However these lesions do not restrict diffusion and do not show postcontrast enhancement. The overall amount of white matter disease is within the normal range for the patient's age. The brain stem, cerebellum, and cerebral hemispheres otherwise have a normal morphologic appearance as well as MR signal intensity on all pulse sequences. There are no areas of restricted diffusion on diffusion weighted imaging to suggest an acute infarct. There is no evidence of an intracranial hemorrhage, or hydrocephalus. The visualized portions of the orbits, calvarium, paranasal sinuses, and skull base demonstrate no significant abnormality. MRA head: The intracranial portions of the vertebral arteries, internal carotid arteries, and their major branches show no significant stenosis or other vascular anomaly. No aneurysms or vascular malformations are evident. Partial origin of the right posterior cerebral artery noted incidentally. Isolated left origin of the SOURAV also seen. Impression: 1. MRI head: No evidence of acute infarct. There is subtle asymmetric enhancement in the left external auditory canal apparently involving the facial nerve that suggests a seventh cranial neuritis/Nunez's palsy. 2. MRA head: No evidence of aneurysm or flow-limiting arterial stenosis. MRA of the neck with/without contrast on 05/05/17: Findings: The carotid bifurcations are widely patent bilaterally with normal flow-related enhancement within the common carotid, internal carotid, and external carotid arteries. The vertebral arteries are normal in size without evidence of significant stenosis. Impression: Unremarkable MRA of the neck with and without contrast. No stenosis by NASCET criteria. History of Present Illness HPI: Mrs. Herrera is a 61-year-old right-handed female who presented to the emergency room today by recommendation of her physician's office for evaluation of facial asymmetry. The patient reports that she's had abnormal symptoms in the left side of her head and neck for 5 days starting with hypersensitivity the left side of her scalp to palpation originating 5 days ago followed by onset of anterior headaches 2 days ago in the morning which resolved after she ate breakfast. She then worked in her yard all day long and at the end of the day had recurrent headache with backache and generalized myalgias. Symptoms persisted overnight and into Monday morning with persistent bilateral frontal headache which resolved after breakfast and taking Tylenol and/or coffee. She again worked in the yard and that evening thought she felt something swollen behind her left ear and possibly in the submental region. She also noted that her tongue seems swollen on the left side but did not notice other facial abnormalities until this morning when she described an abnormal sensation when she ate breakfast reported only that "something felt weird". She then looked in the mirror and reports that her face looked different and that when she tried smiling or frowning the left side of her face didn't move normally. She denies any other neurological symptoms (excluding chronic numbness in the right hand and arm which been present for years and is unchanged from baseline) including difficulty speaking or swallowing, double vision or visual loss, weakness in the arms or legs, clumsiness, stumbling, sensory change, or paresthesias. She was seen at her primary care physician's office this afternoon and referred to the emergency room for further assessment. The patient initially attributed her symptoms to Nunez's palsy but in the ER had no upper facial involvement. Facial droop was present and tongue deviated to the right. Noncontrast CT of the head was negative for bleed and patient is admitted at this time with possible acute/subacute stroke. The patient takes aspirin 325 mg daily due to past history of atrial fibrillation. Hospital Course This is a general summary of the patient's hospital course. For more details refer to the complete medical record. Hospital course: Patient was admitted with probable ischemic stroke resulting in left facial weakness. No upper facial involvement was evident on admission. She was converted from aspirin to Plavix on admission and statin was initiated per stroke protocol. By 05/05 lower facial involvement was less prominent and the patient was not fully closing her left eye nor was she blinking the left eye normally. She continued to describe discomfort in the left ear and the tympanic membrane was dull but not erythematous. Standard stroke was completed including Carotid Dopplers, noncontrast CT of the head, MRI/MRA of the head and MRA of the neck with all studies unremarkable. There was a subtle suggestion of inflammatory change in the left external auditory canal involving the facial nerve raising the question of seventh cranial nerve neuritis and Nunez's palsy. The latter diagnosis was compatible with symptoms as they evolved on 05/05 and consistent with prodromal symptoms the patient described. She was seen in consultation by Dr. Lewis due to past history of atrial fibrillation. Echocardiogram was obtained and is unchanged from the past. She remained in sinus rhythm throughout the hospitalization. Anticoagulation was reviewed by Dr. Lewis and the patient elected to convert to Pradaxa from aspirin at discharge to avoid future concern of stroke. Please refer to the progress note earlier today for details of discharge examination. The patient assessed to follow-up with Dr. Faulkner early next week for reassessment. She was started on prednisone 60 mg daily and valacyclovir thousand milligrams 3 times a day for 1 week for treatment of Nunez's palsy. She was instructed in use of moisturizing eyedrops and eye gel to prevent ocular irritation and the possible need for patching her left eye if she is unable to close it fully. Time spent with patient: greater than 35 minutes DVT Prophylaxis: Pradaxa Discharge Plan - Med Rec/Dispo Referrals/Follow Up: Gail Faulkner MD [Family Provider] - (Early next week) Ledy Lewis MD [Physician] - (As instructed) Hai Instructions: Nunez Palsy (GEN) Prescriptions: New Mineral Oil/Petrolatum,White [Refresh Lacri-Lube Ointment] 3.5 gm OP HS # 0.25 inch Valacyclovir [Valtrex] 1,000 mg PO Q8HR #20 tab PredniSONE [Deltasone] 60 mg PO WB #18 tab Dabigatran [Pradaxa] 1 cap PO BID #60 cap Continue Pindolol 2.5 mg PO BID #0 tab [place]-3/Dha/Epa/Fish Oil [Fish Oil 1,000 mg Softgel] 2,000 mg PO DAILY Ascorbic Acid [Vitamin C] 1,000 mg PO DAILY #0 Cholecalciferol (Vitamin D3) [Vitamin D3] 3,000 tab PO DAILY #0 Magnesium Amino Acid Chelate [Magnesium] 100 mg PO DAILY #0 Glucosamine/Chondro Lobo A/C/Mn [Glucosamine-Chondroitin Cap] 1 tab PO DAILY #0 Acetaminophen [Acetaminophen Extra Strength] 1,000 mg PO Q6H PRN PRN Reason: Pain Lutein 20 mg PO DAILY Discontinued Aspirin 325 mg PO DAILY #0 tab - Disposition 01 Discharged Home, Self-Care - Dismissal Complete Discharge Instructions are:: Complete
[2017-05-06] MEDS ORDERED: PredniSONE 20 MG TABLET PO SCH (18:56)
== END 2017-05-05 20:30 | disposition home or self-care (01) | DRG 74 ==
LOC: ED 17:01 → MED 18:55
PROVIDERS: ADMIT Internal Medicine; ATTEND Internal Medicine